=== PATIENT | female | born 1965 | race Caucasian/White ===

== ENCOUNTER 2023-02-05 10:24 | Outpatient (CLI) | payer BC, SELFPAY ==
--- NOTE | ~2023-02-05 | XR_ITS ---
XR hip BI wo pelvis DATE: 02/05/2023 10:57 INDICATION: Bilateral hip pain TECHNIQUE: AP and lateral views of each hip COMPARISON: None FINDINGS: Battery pack overlies the left gluteal area. Severe degenerative disc disease at L5-S1. Hardware is noted at the L4-5 level. The pubic symphysis and sacral iliac joints appear intact. No fracture or dislocation, avascular necrosis or bone destruction of either hip is detected. Hip vikas nt spaces are symmetric and relatively preserved. IMPRESSION: No significant abnormality of the hips Severe degenerative disc disease at L5-S1. Hardware is noted at the L4-5 level. Reviewed, dictated and finalized at location L.
== END 2023-02-05 10:25 ==
LOC: MICIMG 10:32
PROVIDERS: PCP Nurse Practitioner Family; Visit Provider Nurse Practitioner Family
DX: M25.551 Pain in right hip (principal); M25.552 Pain in left hip; M51.37 Other intervertebral disc degeneration, lumbosacral region
CPT/HCPCS: 73521